=== PATIENT | male | born 1940 | race Caucasian/White ===

== ENCOUNTER → 2016-07-27 | Outpatient (CLI) | payer OTHER ==
[~2016-07-27] MED LIST: ASPCH81X PO; INUL1CHW2 PO; LEVO25TA PO; MULT-188 PO
[2016-07-27 13:58] LABS: BASO % 0.4 %; BASO ABS # 0.05 K/uL (0-0.2); COMPLETE YES; EOS % 2.1 %; HEMATOCRIT 43.4 % (42-52); IG% 0.8 %; LYMPH % 27.1 %; LYMPH ABS # 3.49 K/uL (1.2-3.4); MEAN CELL VOLUME 91.9 fL (80-100); MEAN CORPUSCULAR HEMOGLOBIN 31.6 pg (25-34); MEAN CORPUSCULAR HGB CONC 34.3 g/dl (32-36); MEAN PLATELET VOLUME 10.5 fL (7.4-10.4); MONO % 12.5 %; NEUT % 57.1 %; PLATELET COUNT 255 K/uL (130-400); RED BLOOD COUNT 4.72 M/uL (4.7-6.1); WHITE BLOOD COUNT 12.87 K/uL (4.8-10.8)
[2016-07-27 14:25] LABS: BLOOD UREA NITROGEN 20 mg/dl (7-18); BUN/CREATININE RATIO 16.7 (10-20); CARBON DIOXIDE 25 mmol/L (21-32); CHLORIDE 106 mmol/L (98-107); GLUCOSE 94 mg/dl (70-99); POTASSIUM 4.4 mmol/L (3.5-5.1); SODIUM 139 mmol/L (136-145)
[2016-07-27 14:47] LABS: LYME DISEASE AB IGG NEG (NEG); LYME DISEASE AB IGM NEG (NEG)
[2016-07-27 14:53] LABS: PROSTATE SPECIFIC ANTIGEN 0.692 ng/ml (0.000-4.000)
== END | disposition home or self-care (01) ==
LOC: C.LABBC 11:05
PROVIDERS: ATTEND Internal Medicine Geriatric Medicine
DX: M19.90 Unspecified osteoarthritis, unspecified site (principal); D72.829 Elevated white blood cell count, unspecified; E03.9 Hypothyroidism, unspecified; L30.9 Dermatitis, unspecified; R73.9 Hyperglycemia, unspecified; T14.8 Other injury of unspecified body region; W57.XXXA Bitten or stung by nonvenomous insect and other nonvenomous arthropods, initial encounter; R35.1 Nocturia

== ENCOUNTER → 2017-02-19 | Outpatient (CLI) | payer OTHER ==
[2017-02-19 13:33] LABS: BASO % 0.5 %; BASO ABS # 0.05 K/uL (0-0.2); COMPLETE YES; EOS % 2.5 %; HEMATOCRIT 43.6 % (42-52); IG% 1.1 %; LYMPH % 27.9 %; LYMPH ABS # 3.07 K/uL (1.2-3.4); MEAN CELL VOLUME 92.8 fL (80-100); MEAN CORPUSCULAR HEMOGLOBIN 30.9 pg (25-34); MEAN CORPUSCULAR HGB CONC 33.3 g/dl (32-36); MEAN PLATELET VOLUME 10.2 fL (7.4-10.4); MONO % 13.4 %; NEUT % 54.6 %; PLATELET COUNT 259 K/uL (130-400); WHITE BLOOD COUNT 11.01 K/uL (4.8-10.8)
[2017-02-19 14:06] LABS: ALT/SGPT 34 U/L (12-78); BLOOD UREA NITROGEN 17 mg/dl (7-18); BUN/CREATININE RATIO 15.7 (10-20); CALCIUM 8.9 mg/dl (8.5-10.1); CARBON DIOXIDE 26 mmol/L (21-32); CHLORIDE 105 mmol/L (98-107); CHOLESTEROL 176 mg/dl (0-200); GLUCOSE 102 mg/dl (70-99); POTASSIUM 4.3 mmol/L (3.5-5.1); SODIUM 139 mmol/L (136-145); TRIGLYCERIDES 153 mg/dl (0-150); VERY LOW DENSITY LIPOPROT CALC 31 mg/dl
[2017-02-19 14:09] LABS: ALKALINE PHOSPHATASE 74 U/L (45-117); AST/SGOT 26 U/L (15-37); CHOLESTEROL/HDL RATIO 4.6; HDL CHOLESTEROL 38 mg/dl; LDL CHOLESTEROL CALCULATED 107 mg/dl
--- NOTE | 2017-02-26 09:05 | CODING QUERY MEDICAL NECESSITY ---
SUPPORTING DIAGNOSIS NEEDED Dr. Velasco, A supporting diagnosis is required for the test/procedure performed on this patient in order for us to be reimbursed by the patient's insurance. Please provide a supporting diagnosis for the following test/procedure listed below next to the test name along with your signature. *If there is no additional diagnosis for this patient that would support the following test/procedure please document that below next to the test/procedure. Test(s)/Procedure(s) that require a supporting diagnosis: * ([id number]) B12 VITAMIN LEVEL DIAGNOSIS: DATE OF SERVICE: 02/19/17 Provider Signature: Date: Thank you Sean Valenzuela [facility] Information Management Once completed, please kindly fax back to [phone] For questions please call [phone]
== END | disposition home or self-care (01) ==
LOC: C.LABBC 12:14
PROVIDERS: ATTEND Internal Medicine Geriatric Medicine
DX: E78.5 Hyperlipidemia, unspecified (principal); D72.829 Elevated white blood cell count, unspecified; R73.9 Hyperglycemia, unspecified; E03.9 Hypothyroidism, unspecified; G62.9 Polyneuropathy, unspecified

== ENCOUNTER → 2017-05-02 | Day surgery (SDC) | payer OTHER ==
[2017-04-27 07:39] VITALS: Ht 177.8 cm; Wt 90.9 kg
[~2017-05-02] VITALS: Ht 177.8 cm; Wt 90.9 kg
[~2017-05-02] MED LIST changes: +CETI10TA10 PO; +EpHEDrine SULFATE 50MG/5ML SYR ONE; +FIBER GUMMIES PO; +FLM4 PO; -INUL1CHW2 PO; +LIDOCAINE HCL 2% 2 ML VIAL (20MG/ML) ONE; -MULT-188 PO; +MULTTAB58 PO; +PRAV20TA PO; +PROPOFOL IV EMULSION 10 MG/ML 20 ML VIAL IV ONE; +SODIUM CHLORIDE 0.9% 500ML 500 ML IV ONE
--- NOTE | 2017-05-02 11:21 | Endo History and Physical ---
History & Physical Date of Service: May 02, 2017. Chief Complaint: Tubal adenoma Referring Physician: Dr. Velasco History of Present Illness 76 yo CM who presents for colonoscopy secondary to history of colon polyps. Past Medical History Thyroid Disease Past Surgical History Hx Cardiac Surgery: No Hx Internal Defibrillator: No Hx Pacemaker: No Hx Abdominal Surgery: Yes (RT/LEFT INGUINAL HERNIA REPAIR) Hx Post-Op Nausea and Vomiting: No Hx Cancer Surgery: No Hx Thoracic Surgery: No Hx Orthopedic: No Hx Urinary Tract Surgery: No Family History None Social History Smoking Status: Never Smoker Hx Substance Use: No Hx Alcohol Use: No Allergies Coded Allergies: No Known Allergies (Unverified , 05/02/17) Current Medications Reported Home Medications Medications Dose Route/Sig Max Daily Dose Days Date Category Multivitamin (Multiple Vitamin) 1 Tab Tab 1 Tab PO QAM 04/27/17 Reported [Fiber Gummies] 2 Tab PO QAM 04/27/17 Reported Zyrtec (Cetirizine Hcl) 10 Mg Tab 10 Mg PO QAM 04/27/17 Reported Aspirin Chewable (Aspirin) 81 Mg Chew 81 Mg PO QAM 04/27/17 Reported Pravachol (Pravastatin Sodium) 20 Mg Tab 20 Mg PO DAILY AT 3PM 04/27/17 Reported Tamsulosin HCl 0.4 Mg Cap 1 Cap PO HS 04/27/17 Reported Synthroid (Levothyroxine Sodium) 25 Mcg Tab 25 Mcg PO QAM 04/05/15 Reported Vital Signs Weight (Kilograms): 90.91 Height (Feet): 5 Height (Inches): 10 Date Time Temp Pulse Resp B/P (MAP) Pulse Ox O2 Delivery O2 Flow Rate FiO2 05/02/17 10:51 36.7 90 20 149/83 (105) 96 Room Air Physical Exam General Appearance: WD/WN, no apparent distress Respiratory/Chest: Auscultation: breath sounds normal Cardiovascular: Heart Auscultation: RRR Abdomen: Bowel Sounds: normal Inspection & Palpation: soft, non-distended, no tenderness, guarding & rebound Assessment and Plan Assessment: 76 yo CM who presents for colonoscopy secondary to history of colon polyps. Plan: Proceed with colonoscopy.
--- NOTE | 2017-05-02 12:00 | GI REPORT ---
Procedure Date: 05/02/2017 10:56 AM Procedure: Colonoscopy Indications: High risk colon cancer surveillance: Personal history of colonic polyps Medicines: Monitored Anesthesia Care Complications: No immediate complications. Estimated Blood Loss: Estimated blood loss: none. Procedure: Pre-Anesthesia Assessment: - Prior to the procedure, a History and Physical was performed, and patient medications and allergies were reviewed. The patient's tolerance of previous anesthesia was also reviewed. The risks and benefits of the procedure and the sedation options and risks were discussed with the patient. All questions were answered, and informed consent was obtained. Prior Anticoagulants: The patient has taken aspirin, last dose was 7 days prior to procedure. ASA Grade Assessment: II - A patient with mild systemic disease. After reviewing the risks and benefits, the patient was deemed in satisfactory condition to undergo the procedure. After I obtained informed consent, the scope was passed under direct vision. Throughout the procedure, the patient's blood pressure, pulse, and oxygen saturations were monitored continuously. The scope was introduced through the anus and advanced to the cecum, identified by appendiceal orifice and ileocecal valve. The colonoscopy was performed without difficulty. The patient tolerated the procedure well. The quality of the bowel preparation was good. The ileocecal valve, appendiceal orifice, and rectum were photographed. Findings: The perianal and digital rectal examinations were normal. A 4 mm polyp was found in the transverse colon. The polyp was sessile. The polyp was removed with a cold snare. Resection and retrieval were complete. Scattered small-mouthed diverticula were found in the entire colon. Non-bleeding internal hemorrhoids were found during retroflexion. The hemorrhoids were small. Impression: - One 4 mm polyp in the transverse colon, removed with a cold snare. Resected and retrieved. - Diverticulosis in the entire examined colon. - Non-bleeding internal hemorrhoids. Recommendation: - Resume previous diet. - Continue present medications. - Repeat colonoscopy for surveillance based on pathology results. - Return to primary care physician as previously scheduled. Ned Key DO 05/02/2017 12:00:01 PM This report has been signed electronically. Note Initiated On: 05/02/2017 10:56 AM I attest to the content of the Intraoperative Record and orders documented therein, exceptions below
[2017-05-02 12:19] VITALS: BP 124/66; PULSE 71; O2SAT 97
--- NOTE | 2017-05-02 12:20 | Anesthesiology Progress Note ---
Anesthesia Post Op Note Date & Time May 02, 2017 at 12:20 Vital Signs Pain Intensity: 0 Vital Signs Past 12 Hours Date Time Temp Pulse Resp B/P (MAP) Pulse Ox O2 Delivery O2 Flow Rate FiO2 05/02/17 12:19 71 18 124/66 (85) 97 Room Air 05/02/17 12:03 72 18 119/74 (89) 96 Room Air 05/02/17 11:48 72 16 90/44 (59) 95 Room Air 05/02/17 10:51 36.7 90 20 149/83 (105) 96 Room Air Notes Mental Status: alert / awake / arousable, participated in evaluation Pt Amnestic to Procedure: Yes Nausea / Vomiting: adequately controlled Pain: adequately controlled Airway Patency, RR, SpO2: stable & adequate BP & HR: stable & adequate Hydration State: stable & adequate Anesthetic Complications: no major complications apparent
--- NOTE | 2017-05-02 12:38 | Discharge Instructions ---
Endoscopy Patient Instructions Date / Procedure(s) Performed May 02, 2017. Colonoscopy Allergy Information Coded Allergies: No Known Allergies (Unverified , 05/02/17) Discharge Date / Findings May 02, 2017. Colon polyp Diverticulosis Internal hemorrhoids Medication Instructions Stopped Medication(s): All meds stopped 04-29-17. OK to resume all medications today as prescribed Reported Home Medications Medications Dose Route/Sig Max Daily Dose Days Date Category Multivitamin (Multiple Vitamin) 1 Tab Tab 1 Tab PO QAM 04/27/17 Reported [Fiber Gummies] 2 Tab PO QAM 04/27/17 Reported Zyrtec (Cetirizine Hcl) 10 Mg Tab 10 Mg PO QAM 04/27/17 Reported Aspirin Chewable (Aspirin) 81 Mg Chew 81 Mg PO QAM 04/27/17 Reported Pravachol (Pravastatin Sodium) 20 Mg Tab 20 Mg PO DAILY AT 3PM 04/27/17 Reported Tamsulosin HCl 0.4 Mg Cap 1 Cap PO HS 04/27/17 Reported Synthroid (Levothyroxine Sodium) 25 Mcg Tab 25 Mcg PO QAM 04/05/15 Reported Provider Instructions Activity Restrictions - No exercising or heavy lifting for 24 hours. - Do not drink alcohol the day of the procedure. - Do not drive a car or operate machinery until the day after the procedure. - Do not make any important decisions or sign important papers in 24 hours after the procedure. Following Day: - Return to full activity which may include returning to work/school. Diet Start your diet with liquids and light foods (jello, soup, juice, toast). Then eat your usual diet if not nauseated. Treatment For Common After Affects For mild abdominal pain, bloating, or excessive gas: - Rest - Eat lightly - Lie on right side Follow-Up Information Follow-up with Dr. Velasco as scheduled Anesthesia Information What You Should Know You have had a procedure that required some medicine to reduce anxiety and discomfort. This treatment is called moderate sedation. After receiving the treatment, you may be sleepy, but you will be able to breathe on your own. The effects of the treatment may last for several hours. Follow these instructions along with Activity/Diet recommendations noted above: * Do NOT do anything where dizziness or clumsiness would be dangerous. * Rest quietly at home today, then you can be up and about tomorrow. * Have a responsible person stay with you the rest of today. * You may have had an I.V. today. If so, you may take the dressing off later today. Recommendations Call your doctor if: * Trouble breathing * Continuous vomiting for more than 24 hours * Temperature above 101 degrees * Severe abdominal pain or bloating * Pain not relieved by pain medicine ordered * There is increased drainage or redness from any incision * A large amount of rectal bleeding greater than 2-3 tablespoons. (If you had a polyp/s removed or have hemorrhoids, a small amount of blood - from the rectum is to be expected.) * You have any unanswered questions or concerns. IN THE EVENT OF A SERIOUS EMERGENCY, GO TO THE NEAREST EMERGENCY ROOM Your discharge instructions were prepared by provider Ned Key. Patient Instructions Signature Page Mike Carlisle Patient (or Guardian) Signature/Date: I have read and understand the instructions given to me by my caregivers. Caregiver/RN/Doctor Signature/Date: The above-named patient and/or guardian has received patient instructions on this date. + Original Patient Signature Page (only) stays with chart. Please make copy for patient.
== END | disposition home or self-care (01) ==
LOC: C.GI 10:27
PROVIDERS: ATTEND Internal Medicine
DX: Z12.11 Encounter for screening for malignant neoplasm of colon (principal); Z86.010 Personal history of colon polyps; D12.3 Benign neoplasm of transverse colon; K57.30 Diverticulosis of large intestine without perforation or abscess without bleeding; K64.8 Other hemorrhoids; E07.9 Disorder of thyroid, unspecified; Z79.899 Other long term (current) drug therapy

== ENCOUNTER → 2017-08-23 | Outpatient (CLI) | payer OTHER ==
[~2017-08-23] MED LIST changes: -EpHEDrine SULFATE 50MG/5ML SYR ONE; -LIDOCAINE HCL 2% 2 ML VIAL (20MG/ML) ONE; -PROPOFOL IV EMULSION 10 MG/ML 20 ML VIAL IV ONE; -SODIUM CHLORIDE 0.9% 500ML 500 ML IV ONE
[2017-08-23 13:35] LABS: BASO % 0.9 %; EOS % 4.4 %; EOS ABS # 0.49 K/uL (0-0.5); HEMATOCRIT 42.8 % (42-52); HEMOGLOBIN 14.8 g/dL (14.0-18.0); IG# 0.13 K/uL (0.00-0.02); LYMPH % 29.1 %; LYMPH ABS # 3.25 K/uL (1.2-3.4); MEAN CELL VOLUME 91.1 fL (80-100); MEAN CORPUSCULAR HEMOGLOBIN 31.5 pg (25-34); MEAN CORPUSCULAR HGB CONC 34.6 g/dl (32-36); MEAN PLATELET VOLUME 10.4 fL (7.4-10.4); MONO % 14.4 %; MONO ABS # 1.61 K/uL (0.11-0.59); NEUT ABS # 5.57 K/uL (1.4-6.5); PLATELET COUNT 260 K/uL (130-400); RED CELL DISTRIBUTION WIDTH CV 13.7 % (11.5-14.5); RED CELL DISTRIBUTION WIDTH SD 45.9 fL (36.4-46.3); WHITE BLOOD COUNT 11.15 K/uL (4.8-10.8)
[2017-08-23 13:56] LABS: ALBUMIN 3.7 gm/dl (3.4-5.0); ALT/SGPT 39 U/L (12-78); AST/SGOT 24 U/L (15-37); BLOOD UREA NITROGEN 16 mg/dl (7-18); CALCIUM 8.9 mg/dl (8.5-10.1); CARBON DIOXIDE 27 mmol/L (21-32); CREATININE 1.13 mg/dl (0.60-1.40); GLUCOSE 96 mg/dl (70-99); POTASSIUM 4.1 mmol/L (3.5-5.1); SODIUM 136 mmol/L (136-145)
[2017-08-23 14:07] LABS: ALKALINE PHOSPHATASE 72 U/L (45-117); CHOLESTEROL 187 mg/dl (0-200); LDL CHOLESTEROL CALCULATED 100 mg/dl
[2017-08-23 14:11] LABS: HEMOGLOBIN A1C 5.5 % (4.5-5.6)
== END | disposition home or self-care (01) ==
LOC: C.LABBC 10:39
PROVIDERS: ATTEND Internal Medicine Geriatric Medicine
DX: E78.5 Hyperlipidemia, unspecified (principal); D72.829 Elevated white blood cell count, unspecified; R73.9 Hyperglycemia, unspecified; E03.9 Hypothyroidism, unspecified; N40.2 Nodular prostate without lower urinary tract symptoms